=== PATIENT | male | born 1995 | race Asian ===

== ENCOUNTER 2017-06-08 12:53 | Emergency (ER) | payer OTHER ==
[~2017-06-08] VITALS: Ht 185.4 cm; Wt 61.1 kg
[2017-06-08 12:57] VITALS: BP 133/87; PULSE 72; TEMP 98.1
== END 2017-06-08 14:37 | disposition home or self-care (01) ==
LOC: COL.ER 12:53
DX: H57.8 Other specified disorders of eye and adnexa (principal)